=== PATIENT | male | born 1985 | race Caucasian/White ===

== ENCOUNTER 2019-01-20 15:16 | Emergency (ER) | payer OTHER ==
[~2019-01-20] VITALS: Ht 175.3 cm; Wt 90.7 kg
[2019-01-20] MEDS ORDERED: TRULICITY0.75 MG/0. (16:06)
[2019-01-20] MEDS ORDERED: FORTAMET1000 MG (16:06)
== END 2019-01-20 18:08 | disposition home or self-care (01) ==
LOC: ER 15:16
DX: B34.9 Viral infection, unspecified (principal); R50.9 Fever, unspecified